=== PATIENT | female | born 1955 | race Caucasian/White ===

== ENCOUNTER 2023-08-08 11:11 | Emergency (ER) | payer BC, OTHER ==
[2023-08-08 11:33] VITALS: BP 142/69; PULSE 100; RESP 18; TEMP 98.6; BMI 28.0
[2023-08-08] MEDS ORDERED: ACETAMINOPHEN 500 MG TABLET (FP) ONE (12:59)
[2023-08-08] MEDS: ACETAMINOPHEN 500 MG TABLET (FP) PO ONE (13:02)
[2023-08-08] MEDS ORDERED: BACITRACIN ZINC 15 GM TUBE TOPICAL OINTMENT ONE ×2 (13:38→13:42)
[2023-08-08] MEDS: BACITRACIN 0.9 GM PACKET TP ONE (13:43)
== END 2023-08-08 14:04 | disposition home or self-care (01) ==
LOC: JERFT 11:11
DX: S80.02XA Contusion of left knee, initial encounter (principal); M79.602 Pain in left arm; W01.0XXA Fall on same level from slipping, tripping and stumbling without subsequent striking against object, initial encounter
CPT/HCPCS: 73090-TC-LT-FY; 73560-TC-LT-FY; 99284-25